=== PATIENT | female | born 1930 | race Two or more races ===

== ENCOUNTER 2020-10-12 10:18 | Emergency (ER) | payer OTHER ==
[~2020-10-12] VITALS: Ht 162.6 cm; Wt 73.5 kg
[2020-10-12] MEDS ORDERED: CHILDREN'S ASPI81 MG (10:44)
[2020-10-12] MEDS ORDERED: LIPITOR80 MG (10:44)
[2020-10-12] MEDS ORDERED: HYZAAR 100-251 EACH (10:44)
[2020-10-12] MEDS ORDERED: GARAMYCIN OPHT3.5 GM (10:45)
[2020-10-12] MEDS ORDERED: AMLODIPINE-OLM1 EAC3 (10:45)
[2020-10-12] MEDS ORDERED: GLIPIZIDE XL5 MG (10:46)
[2020-10-12] MEDS ORDERED: ULTRAM50 MG PO (12:53)
[2020-10-12] MEDS ORDERED: KETO10TA2 PO (12:53)
== END 2020-10-12 12:56 | disposition home or self-care (01) ==
LOC: ER 10:18
DX: S20.211A Contusion of right front wall of thorax, initial encounter (principal); W01.198A Fall on same level from slipping, tripping and stumbling with subsequent striking against other object, initial encounter; Y93.89 Activity, other specified; Y92.018 Other place in single-family (private) house as the place of occurrence of the external cause; Y99.8 Other external cause status